=== PATIENT | male | born 1985 | race Caucasian/White ===

== ENCOUNTER 2025-03-14 20:23 | Inpatient (IN) | payer OTHER ==
[~2025-03-14] VITALS: Ht 182.9 cm; Wt 127.0 kg
[~2025-03-14 20:23] MED LIST: Enoxaparin 40 MG/0.4 ML SYR SC SCH; HYDACE5 PO
[2025-03-14] MEDS ORDERED: PROP10 PO (20:52)
[2025-03-14] MEDS ORDERED: ALLEGRA ALLERG180 MG PO (20:52)
[2025-03-14] MEDS ORDERED: CefTRIAXone Sodium 1,000 MG in NS 50 ML IV ONE (21:05)
[2025-03-14] MEDS ORDERED: NS 1,000 ML IV SCH (21:10)
[2025-03-14 21:30] LABS: Alanine Aminotransfer (ALT/SGP 20.0 U/L (12-78); Albumin, Blood 3.5 g/dL (3.4-5.0); Albumin/Globulin Ratio 0.7 (0.8-1.8); Anion Gap 7.0 mmol/L (3-11); Aspartate Aminotrans (AST/SGOT 33.0 U/L (12-37); Bilirubin, Total 0.9 mg/dL (0.1-1.0); Blood Urea Nitrogen 12.0 mg/dL (8-24); CO2, Blood 29.0 mmol/L (21-32); Calcium, Blood 8.9 mg/dL (8.5-10.1); Chloride, Blood 99.0 mmol/L (98-108); Creatinine, Blood 0.76 mg/dL (0.60-1.20); Globulin, Blood 5.2 g/dL (2.2-4.0); Glucose, Blood 102.0 mg/dL (70-99); Potassium, Blood 3.9 mmol/L (3.5-5.5); Sodium, Blood 131.0 mmol/L (136-145); Total Protein, Blood 8.7 g/dL (6.4-8.2)
[2025-03-14 21:38] LABS: BASOPHILS ABSOLUTE AUTO 0.04 K/mm3 (0.00-0.23); BASOPHILS PERCENT AUTO 0 % (0-2); EOSINOPHILS ABSOLUTE AUTO 0.10 K/mm3 (0.00-0.68); EOSINOPHILS PERCENT AUTO 1 % (0-6); Hematocrit 38.1 % (37.0-53.0); Hemoglobin 13.6 g/dL (13.5-17.5); IMMATURE GRAN ABSOLUTE AUTO 0.06 K/mm3 (0.00-0.10); IMMATURE GRAN PERCENT AUTO 1 % (0-1); LYMPHOCYTES ABSOLUTE AUTO 0.63 K/mm3 (0.84-5.20); LYMPHOCYTES PERCENT AUTO 5 % (21-46); MONOCYTES ABSOLUTE AUTO 1.12 K/mm3 (0.16-1.47); MONOCYTES PERCENT AUTO 9 % (4-13); Mean Corpuscular HGB Conc 35.7 g/dL (31.5-36.5); Mean Corpuscular Volume 83 fL (80-100); NEUTROPHILS ABSOLUTE AUTO 10.33 K/mm3 (1.96-9.15); NEUTROPHILS PERCENT AUTO 84 % (41-73); NRBC ABSOLUTE 0.02 K/mm3 (0.00-0.02); NRBC Auto 0.2 /100 WBC (0.0-0.2); RDW Coefficient Variation 12.2 % (11.7-14.2); RDW Standard Deviation 37.1 fL (35.1-46.3)
[2025-03-14 21:57] LABS: Platelet Count 274 K/mm3 (150-400)
[2025-03-14 23:42] VITALS: BP 150/99
[2025-03-14] MEDS ORDERED: NS 250 ML IV PRN (23:50)
[2025-03-15] MEDS ORDERED: NS 1,000 ML IV SCH (00:05)
[2025-03-15] MEDS ORDERED: Ipratropium/Albuterol SulF 2.5-0.5MG/3 ML Amp INH PRN (00:05)
[2025-03-15] MEDS ORDERED: Ondansetron HCl 2 MG / ML 2ML Vial IV PRN (00:05)
[2025-03-15 01:33] LABS: Influenza A, PCR Negative (NEGATIVE); Influenza B, PCR Negative (NEGATIVE); Resp Syncytial Virus, PCR Negative (NEGATIVE); SARS-Cov-2 (COVID-19) PCR, MMC Negative (NEGATIVE)
[2025-03-15 03:06] VITALS: BP 175/109
[2025-03-15 03:36] VITALS: BP 152/95
[2025-03-15 05:51] LABS: BASOPHILS ABSOLUTE AUTO 0.04 K/mm3 (0.00-0.23); BASOPHILS PERCENT AUTO 0 % (0-2); EOSINOPHILS ABSOLUTE AUTO 0.14 K/mm3 (0.00-0.68); EOSINOPHILS PERCENT AUTO 1 % (0-6); Hematocrit 34.1 % (37.0-53.0); Hemoglobin 11.9 g/dL (13.5-17.5); IMMATURE GRAN ABSOLUTE AUTO 0.02 K/mm3 (0.00-0.10); IMMATURE GRAN PERCENT AUTO 0 % (0-1); LYMPHOCYTES ABSOLUTE AUTO 0.86 K/mm3 (0.84-5.20); LYMPHOCYTES PERCENT AUTO 8 % (21-46); MONOCYTES ABSOLUTE AUTO 1.17 K/mm3 (0.16-1.47); MONOCYTES PERCENT AUTO 12 % (4-13); Mean Corpuscular HGB Conc 34.9 g/dL (31.5-36.5); Mean Corpuscular Volume 86 fL (80-100); NEUTROPHILS ABSOLUTE AUTO 7.95 K/mm3 (1.96-9.15); NEUTROPHILS PERCENT AUTO 78 % (41-73); NRBC ABSOLUTE 0.00 K/mm3 (0.00-0.02); NRBC Auto 0.0 /100 WBC (0.0-0.2); Platelet Count 232 K/mm3 (150-400); RDW Coefficient Variation 12.3 % (11.7-14.2); RDW Standard Deviation 38.8 fL (35.1-46.3)
[2025-03-15 06:32] LABS: Alanine Aminotransfer (ALT/SGP 17.0 U/L (12-78); Albumin, Blood 3.1 g/dL (3.4-5.0); Albumin/Globulin Ratio 0.7 (0.8-1.8); Anion Gap 7.0 mmol/L (3-11); Aspartate Aminotrans (AST/SGOT 26.0 U/L (12-37); Bilirubin, Total 0.7 mg/dL (0.1-1.0); Blood Urea Nitrogen 10.0 mg/dL (8-24); CO2, Blood 28.0 mmol/L (21-32); Calcium, Blood 8.2 mg/dL (8.5-10.1); Chloride, Blood 103.0 mmol/L (98-108); Creatinine, Blood 0.71 mg/dL (0.60-1.20); Globulin, Blood 4.6 g/dL (2.2-4.0); Glucose, Blood 93.0 mg/dL (70-99); Potassium, Blood 3.8 mmol/L (3.5-5.5); Sodium, Blood 134.0 mmol/L (136-145); Total Protein, Blood 7.7 g/dL (6.4-8.2)
[2025-03-15] MEDS ORDERED: Polyethylene Glycol 3350 17 gm PO PRN (07:35)
[2025-03-15 07:47] VITALS: BP 170/93
--- NOTE | 2025-03-15 07:48 | NUR ---
Shift Summary Patient was admitted tonight for pneumonia. Arrived to unit and self transferred. AOx4. Independent. Denies pain. 2L O2 via NC, new for patient. Uneventful rest of the shift since admitted. Slept for a portion of the night. VSS. Denies pain. Tele: SR [phone].
[2025-03-15] MEDS ORDERED: Lactobacil 2-S.Thermo-Bifido 1 1 Cap PO SCH (09:00)
[2025-03-15] MEDS ORDERED: Formoterol/Mometasone MDI 5/200 mcg 13 GM INH SCH (10:30)
[2025-03-15 11:16] VITALS: BP 155/92
[2025-03-15 16:02] VITALS: BP 145/98
--- NOTE | 2025-03-15 18:38 | NUR ---
SHIFT SUMMARY PT A&OX4. PT ADMITTED DUE TO PNEUMONIA. PT REPORTS MILD HEADACHE, PAIN MANAGED PER EMAR. PT REPORTS IMPROVEMENT WITH INCREASE MOBILITY. TELE D/C. PT NOW ON ROOM AIR. SPO2 IS 92% CONT. PULSE OX ON. PT FINISHED BAG OF FLUIDS. PT INDEPENDENT IN ROOM. FAMILY CAME TO VISIT. NOTIFIED DR. ROMAN PT ON ROOM AIR. PLAN IS TO DISCHARGE IN AM. PT CONT OF URINE AND BM. PT IN CHAIR, CALL LIGHT IN REACH.
[2025-03-15 19:31] VITALS: BP 144/89
[2025-03-15] MEDS ORDERED: CefTRIAXone Sodium 1,000 MG in NS 100 ML IV SCH (21:00)
[2025-03-16 04:38] LABS: pH Blood Venous 7.43 (7.34-7.37)
[2025-03-16 04:41] LABS: Hematocrit 33.2 % (37.0-53.0); Hemoglobin 11.2 g/dL (13.5-17.5); Mean Corpuscular HGB Conc 33.7 g/dL (31.5-36.5); Mean Corpuscular Volume 86 fL (80-100); NRBC ABSOLUTE 0.00 K/mm3 (0.00-0.02); NRBC Auto 0.0 /100 WBC (0.0-0.2); Platelet Count 246 K/mm3 (150-400); RDW Coefficient Variation 12.3 % (11.7-14.2); RDW Standard Deviation 38.5 fL (35.1-46.3)
[2025-03-16 05:35] LABS: Magnesium, Blood 2.2 mg/dL (1.6-2.4)
[2025-03-16 05:36] LABS: Albumin, Blood 2.9 g/dL (3.4-5.0); Anion Gap 7 mmol/L (3-11); Blood Urea Nitrogen 9 mg/dL (8-24); CO2, Blood 29 mmol/L (21-32); Calcium, Blood 8.5 mg/dL (8.5-10.1); Chloride, Blood 102 mmol/L (98-108); Creatinine, Blood 0.68 mg/dL (0.60-1.20); Glucose, Blood 87 mg/dL (70-99); Phosphorus, Blood 2.9 mg/dL (2.5-4.9); Potassium, Blood 3.4 mmol/L (3.5-5.5); Sodium, Blood 135 mmol/L (136-145)
[2025-03-16 07:08] VITALS: BP 138/91
--- NOTE | 2025-03-16 07:31 | NUR ---
Shift Summary Productive cough remains. Patient wearing CPAP to bed. Still a little short of breath, but able to recover well on RA. Overall, uneventful night. Should be discharging later today. Report handed off to LATOYA Mckeon.
[2025-03-16] MEDS ORDERED: ALLEGRA ALLERG180 MG PO (11:42)
[2025-03-16] MEDS ORDERED: PROP10 PO (11:43)
[2025-03-16] MEDS ORDERED: DOXY100 PO (11:43)
[2025-03-16] MEDS ORDERED: Humibid-LA 600600 MG PO (11:44)
[2025-03-16] MEDS ORDERED: DULERA 100 MCG/13 GM INH (11:45)
[2025-03-16] MEDS ORDERED: ALBU90OI INH (11:46)
--- NOTE | 2025-03-16 12:49 | NUR ---
DISCHARGE NOTE PT A&OX4. PT ADMITTED DUE TO PNEUMONIA. PT ON ROOM AIR. VSS. PT REPORTS NO CHEST PAIN/PAIN/SOB. PT GOT POTASSIUM REPLACEMENT. PT GOT BREATHING TREATMENT. WENT OVER DISCHARGE INSTRUCTIONS AND MEDS. IV D/C. PT INDEPENDENT IN ROOM. THIS RN ESCORTED PT OUT TO PT ENTERANCE. PT WENT WITH BELONGINGS. MEDS FAXED TO PREFERRED PHARM.
== END 2025-03-16 12:58 | disposition home or self-care (01) | DRG 871 ==
LOC: ER 20:23 → MEDS 21:58
PROVIDERS: Internal Medicine; Student in an Organized Health Care Education/Training Program; ADMIT Internal Medicine
DX: A41.9 Sepsis, unspecified organism (principal); J18.9 Pneumonia, unspecified organism; J96.01 Acute respiratory failure with hypoxia; E87.1 Hypo-osmolality and hyponatremia; I10 Essential (primary) hypertension; F41.9 Anxiety disorder, unspecified; J45.909 Unspecified asthma, uncomplicated; Z79.899 Other long term (current) drug therapy; Z87.01 Personal history of pneumonia (recurrent)
CPT/HCPCS: 36415; 80053; 80069; 82803; 83605; 83690; 83735; 83880; 84145; 84484; 85025; 85027; 87040; 87070; 87205; 87637; 93005; 93010; 94640; 94660; 94664; 94760; 94762; 99285-25; A9270; J0456; J0696; J7030; J7050